=== PATIENT | female | born 1995 | race American Indian/Alaskan Native ===

== ENCOUNTER 2018-03-29 17:05 | Emergency (ER) | payer SELFPAY ==
[2018-03-29 18:32] VITALS: BP 112/80
[2018-03-29 21:30] LABS: Bilirubin,Urine NEG (Negative); Blood,Urine NEG (Negative); Color,Urine Yellow (Yellow); Mucus,Urine FEW /HPF; Protein,Urine <15 mg/dL mg/dL (Negative); Urobilinogen,Urine < 2.0 mg/dL (<2.0)
--- NOTE | 2018-03-29 22:14 | Ultrasound Report ---
FINAL REPORT PROCEDURE: US OB < = 14 WEEKS FETUS TECHNIQUE: Real-time transabdominal sonography of the uterus, placenta, amniotic fluid, adnexa, and fetus was performed with image documentation. Measurements were obtained to determine age/size. M-mode Doppler was used to document heartbeat. CPT 42897 HISTORY: cramping, spotting, hx of miscarriages. COMPARISON: No prior studies are available for comparison. FINDINGS: CRL: 4.5 mm, which corresponds to a gestational age of: 6 weeks, 1 days. Yolk Sac: Normal. Embryonic Cardiac Activity: 114 beats per minute and regular Gestational Sac: Normal. Amniotic fluid: Normal. Cervix: Normal. Right Ovary: Measures 3.5 x 1.7 x 2.7 centimeters. An echogenic lesion measuring 2.1 centimeters is noted without any internal Doppler signal. Left Ovary: Not well visualized Estimated delivery date: 11/21/2018 IMPRESSION: Single live intrauterine gestation at approximately 6 weeks and 1 day. EDC by US 11/21/2018 An echogenic lesion in the right ovary without Doppler signal most likely represents a hemorrhagic corpus luteal cyst.
--- NOTE | 2018-03-29 22:37 | Emergency Department Report ---
ED HPI - General Chief complaint: Abdominal Pain Stated complaint: ABDOMINAL PAIN/ Time Seen by Provider: 03/29/18 22:36 Source: patient Mode of arrival: Ambulatory Limitations: No Limitations - History of Present Illness Initial comments: This is a 22-year-old female who was previously unknown to this provider.. She is , does not currently have a private [facility] physician. She is presenting to the ER today with a complaint of lower abdominal cramping. It does not radiate anywhere. It is intermittent. The patient denies headache, neck pain, chest pain, urinary symptoms, vaginal bleeding. Her discomfort has been present for a week, and she came in today, "because today was intact to get it checked out." MD Complaint: abdominal pain -: Gradual, week(s) (1) Location: abdomen Radiation: none Severity: mild Quality: cramping Consistency: intermittent Improves with: none Worsens with: none Associated symptoms: abdominal pain. denies: nausea/vomiting, vaginal bleeding , vaginal discharge, dysuria, headache, vision changes, malaise, dysparuenia, rash, seizure, shortness of breath, syncope, weakness Vaginal bleeding: none :: Yes OB History - Current : no complications Pre- care: none - Related Data Previous Rx's Medication Instructions Recorded Last Taken Type Acetaminophen [Tylenol Arthritis] 650 mg PO Q6HR PRN #30 tablet.er 03/29/18 Unknown Rx Doxylamine Succinate/Vit B6 1 each PO QHS PRN #30 tablet. 03/29/18 Unknown Rx [Evert Chu 10-10 mg Tablet] Willow Root [Willow] 250 mg PO QID PRN #30 capsule 03/29/18 Unknown Rx Vit Calc,Iron,Folic 1 each PO QDAY #30 tablet 03/29/18 Unknown Rx [ Vitamins] Allergies Allergy/AdvReac Type Severity Reaction Status Date / Time No Known Allergies Allergy Unverified 03/29/18 18:32 ED Review of Systems ROS: Stated complaint: ABDOMINAL PAIN/ Other details as noted in HPI Comment: All other systems reviewed and negative ED Past Medical Hx - Past Medical History Previous Medical History?: No - Surgical History Past Surgical History?: No - Social History Smoking Status: Never Smoker Substance Use Type: None - Medications Home Medications: Home Medications Medication Instructions Recorded Confirmed Last Taken Type Acetaminophen [Tylenol Arthritis] 650 mg PO Q6HR PRN #30 tablet.er 03/29/18 Unknown Rx Doxylamine Succinate/Vit B6 1 each PO QHS PRN #30 tablet. 03/29/18 Unknown Rx [Evert Chu 10-10 mg Tablet] Willow Root [Willow] 250 mg PO QID PRN #30 capsule 03/29/18 Unknown Rx Vit Calc,Iron,Folic 1 each PO QDAY #30 tablet 03/29/18 Unknown Rx [ Vitamins] ED Physical Exam - General Limitations: No Limitations General appearance: alert, in no apparent distress - Head Head exam: Present: atraumatic, normocephalic - Eye Eye exam: Present: normal appearance, EOMI. Absent: nystagmus - ENT ENT exam: Present: normal exam, normal orophraynx, mucous membranes moist, normal external ear exam - Neck Neck exam: Present: normal inspection, full ROM. Absent: tenderness, meningismus - Respiratory Respiratory exam: Present: normal lung sounds bilaterally. Absent: respiratory distress - Cardiovascular Cardiovascular Exam: Present: regular rate, normal rhythm, normal heart sounds. Absent: bradycardia, tachycardia, irregular rhythm, systolic murmur, diastolic murmur, rubs, gallop - GI/Abdominal GI/Abdominal exam: Present: soft, normal bowel sounds. Absent: distended, tenderness, guarding, rebound, rigid, pulsatile mass - Extremities Exam Extremities exam: Present: normal inspection, full ROM, normal capillary refill. Absent: pedal edema, joint swelling, calf tenderness - Back Exam Back exam: Present: normal inspection, full ROM. Absent: tenderness, CVA tenderness (R), paraspinal tenderness, vertebral tenderness - Neurological Exam Neurological exam: Present: alert, oriented X3, CN II-XII intact, normal gait, other (Extraocular movements intact. Tongue midline. No facial droop. Facial sensation intact to light touch in the V1, V2, V3 distribution bilaterally. 5 and 5 strength in 4 extremities.. Sensation is intact to light touch in 4 extremities.). Absent: motor sensory deficit - Psychiatric Psychiatric exam: Present: normal affect, normal mood - Skin Skin exam: Present: warm, dry, intact, normal color. Absent: rash ED Course Vital Signs 03/29/18 18:28 Temperature 98.0 F Pulse Rate 84 Respiratory 16 Rate Blood Pressure 112/80 O2 Sat by Pulse 99 Oximetry ED Medical Decision Making - Lab Data Vital Signs 03/29/18 18:28 Temperature 98.0 F Pulse Rate 84 Respiratory 16 Rate Blood Pressure 112/80 O2 Sat by Pulse 99 Oximetry Lab Results 03/29/18 03/29/18 03/29/18 Range/Units 19:20 19:20 20:19 HCG, Qual Positive (Negative) Urine Color Yellow (Yellow) Urine Turbidity Clear (Clear) Urine pH 6.0 (5.0-7.0) Ur Specific [place] 1.014 (1.003-1.030) Urine Protein <15 mg/dl (Negative) mg/dL Urine Glucose (UA) Neg (Negative) mg/dL Urine Ketones Neg (Negative) mg/dL Urine Blood Neg (Negative) Urine Nitrite Neg (Negative) Urine Bilirubin Neg (Negative) Urine Urobilinogen < 2.0 (<2.0) mg/dL Ur Leukocyte Esterase Neg (Negative) Urine WBC (Auto) 1.0 (0.0-6.0) /HPF Urine RBC (Auto) 1.0 (0.0-6.0) /HPF U Epithel Cells (Auto) 4.0 (0-13.0) /HPF Urine Mucus Few /HPF Blood Type O POSITIVE - Radiology Data Radiology results: report reviewed, image reviewed Ultrasound demonstrates appropriate intrauterine . Likely right-sided hemorrhagic corpus luteum. 6 weeks, 1 day - Medical Decision Making Differential diagnosis, including but not limited to: , constipation, urinary tract infection, corpus luteum cyst Assessment and plan: 22-year-old female, 4, para 1, history of stillbirth, no care as of yet, presenting with 1 week of nonspecific abdominal cramping. She is afebrile with reassuring vital signs, has no abdominal tenderness, rebound or guarding. She is Rh+, urinalysis not consistent with bacteriuria or urinary tract infection, she declined pain medication, and ultrasound confirmed intrauterine . Patient will be referred to outpatient [facility] for definitive management of her early . Return precautions are reviewed. The patient was given a copy of her ultrasound report. Critical care attestation.: If time is entered above; I have spent that time in minutes in the direct care of this critically ill patient, excluding procedure time. ED Disposition Clinical Impression: Qualifiers: Weeks of gestation: less than 8 weeks Qualified Code(s): Z3A.01 - Less than 8 weeks gestation of Disposition: DC-01 TO HOME OR SELFCARE Is pt being admited?: No Does the pt Need Aspirin: No Condition: Stable Instructions: (ED) Additional Instructions: Rest, and avoid heavy lifting. Avoid strenuous physical activity. Take the vitamins as directed. Take the nausea medications, including willow as needed/directed. Take the Tylenol as needed for pain. Follow up as soon as possible with an [facility] doctor to start care. Return to the ER right away with new pain, worsened pain, migration of pain, fevers, chills, lethargy, irritability, projectile vomiting, change in mental status, confusion, intractable nausea or vomiting, inability to tolerate liquids feeds. Prescriptions: Doxylamine Succinate/Vit B6 [Evert Chu 10-10 mg Tablet] 1 each PO QHS PRN #30 tablet.dr PRN Reason: Nausea Acetaminophen [Tylenol Arthritis] 650 mg PO Q6HR PRN #30 tablet.er PRN Reason: Pain Willow Root [Willow] 250 mg PO QID PRN #30 capsule PRN Reason: Nausea Vit Calc,Iron,Folic [ Vitamins] 1 each PO QDAY #30 tablet Referrals: MARIBEL MARTINEZ MD [Primary Care Provider] - 3-5 Days [facility] [Provider Group] - 3-5 Days [facility] [Provider Group] - 3-5 Days [facility] [Provider Group] - 3-5 Days
--- NOTE | 2018-03-30 06:47 | Ultrasound Report ---
FINAL REPORT EXAM: US OB TRANSVAGINAL HISTORY: Cramping, spotting, hx of miscarriages. TECHNIQUE: Transvaginal imaging was obtained the pelvis including Doppler interrogation of the uterus and adnexa. FINDINGS: The uterus is retroverted measuring 8.1 cm x 5.4 cm x 7 cm. Within the uterus is a well-formed gestational sac which contains a pole and yolk sac. The pole has a crown-rump length of 4.5 mm compatible with a 6 week 1 day IUP. The heart rate is 114 BPM. There is no evidence of subchorionic hemorrhage. Free fluid is not seen the pelvis. The right ovary measures 3.5 cm x 1.7 cm x 2.7 cm. There are benign-appearing follicles in the right ovary with a dominant complex cyst measuring 2.1 cm in diameter most likely representing corpus luteum cyst. The left ovary is normal size contour and echotexture measuring 3.5 cm x 2.5 cm x 1.9 cm and contains several small follicles. The blood flow is normal both ovaries. IMPRESSION: Single viable IUP, 6 weeks 1 day. The heart rate is 114 BPM. No evidence of free fluid. 2.1 cm corpus luteum cyst right ovary.
== END 2018-03-29 22:57 | disposition home or self-care (01) ==
LOC: ED 17:05
DX: O26.891 Other specified pregnancy related conditions, first trimester (principal); R10.9 Unspecified abdominal pain; Z3A.01 Less than 8 weeks gestation of pregnancy
CPT/HCPCS: 36415; 76801; 76817; 81001; 84703; 86900; 86901